=== PATIENT | male | born 1985 | race Caucasian/White ===

== ENCOUNTER 2018-02-05 13:44 | Emergency (ER) | payer SELFPAY ==
[~2018-02-05] VITALS: Ht 172.7 cm; Wt 86.2 kg
[~2018-02-05 13:44] MED LIST: AMOXICILLIN500 MG PO; ANTIVERT/2525 M1 PO; ZOFRAN4 MG PO
== END 2018-02-05 15:02 | disposition home or self-care (01) ==
LOC: ED 13:44
DX: R51 Headache (principal); R03.0 Elevated blood-pressure reading, without diagnosis of hypertension; F17.200 Nicotine dependence, unspecified, uncomplicated